=== PATIENT | female | born 1970 | race African-American/Black ===

== ENCOUNTER 2025-05-07 15:42 | Emergency (ER) | payer OTHER, SELFPAY ==
--- NOTE | ~2025-05-07 | CT_ITS ---
EXAMINATION: CT ABDOMEN AND PELVIS WITHOUT CONTRAST CLINICAL INFORMATION: Lower abdominal pain. COMPARISON: None available. TECHNIQUE: Multidetector volumetric imaging was performed from the superior aspect of the liver through the pubic symphysis. Sagittal and coronal reformatted images were obtained on the technologist's workstation. This CT examination was performed using dose optimization techniques as appropriate, variously including the following: *Automated exposure control *Adjustment of mA and/or kV according to patient size (this includes techniques or standardized protocols for targeted exams where dose is matched to indication/reason for exam; i.e. extremities or head) *Use of iterative reconstruction technique FINDINGS: LUNG BASES: The visualized lung bases are unremarkable. LIVER, GALLBLADDER, AND BILIARY TREE: The unenhanced liver is normal in size, shape, and attenuation. No focal hepatic lesion or biliary ductal dilatation is present. Gallbladder is surgically absent. PANCREAS: Unremarkable. SPLEEN: Unremarkable. ADRENAL GLANDS: Unremarkable. KIDNEYS AND URETERS: The kidneys are normal in size, shape, and attenuation. No hydronephrosis, hydroureter, or calculi seen. No perinephric stranding. BLADDER: Unremarkable. GASTROINTESTINAL TRACT: There is acute noncomplicated diverticulitis of the distal descending colon. A small amount of fluid in the left paracolic gutter. There is mild to moderate diverticulosis of the entire colon. There is no small bowel abnormality. No rectal abnormality. The appendix is normal. Stomach and duodenum appear normal. ABDOMINAL WALL: No significant hernia is appreciated. LYMPH NODES: Normal. VASCULAR: Unremarkable. PELVIC VISCERA: There is an IUD within the uterus. Uterus is retroverted and retroflexed. There is no adnexal abnormality. Ovaries appear normal. OSSEOUS STRUCTURES: There is no suspicious lytic or blastic bone lesion. CT/CT abdomen pelvis wo IV con IMPRESSION: Acute noncomplicated diverticulitis of the distal descending colon. Electronically signed by: Tj Padilla MD 05/07/2025 04:26 PM EDT
--- NOTE | 2025-05-07 15:59 | ED.GENADULT ---
HPI - General Adult General Chief complaint: Abdominal Pain Stated complaint: Blood in urine/ Sent from [facility] urgent care Time Seen by Provider: 05/07/25 16:08 Source: patient and RN notes reviewed Mode of arrival: ambulatory Limitations: no limitations History of Present Illness ED Provider: Melanie Robles PA-C HPI narrative: 54-year-old female with medical history of HTN presents to the ED due to 2 days of lower abdominal pain, nausea and increased urinary frequency. Patient states she woke up feeling fine on Saturday gradually through the day she noticed lower abdominal pain an increase of urinary frequency. Patient states she thought it was gas and was eating Tums without effect. Patient states she went to bed last night experiencing chills and slept with her heater on. Patient states she woke up this morning still experiencing lower abdominal pain and went to [facility] urgent care where they found a blood in the urine and encouraged her to seek care in the ED. Denies chest pain, shortness of breath, vomiting, diarrhea, black/tarry stool MD complaint: lower abd pain, increased urinary frequency Related Data Previous Rx's ?Medication ?Instructions ?Recorded amoxicillin 875 mg-potassium 1 tab PO BID #20 tabs 05/07/25 clavulanate 125 mg tablet ketorolac 10 mg tablet 10 mg PO Q8H PRN pain 3 days #9 05/07/25 tabs ondansetron HCl 4 mg tablet 4 mg PO Q8H PRN nausea and 05/07/25 vomiting #12 tabs Allergies Allergy/AdvReac Type Severity Reaction Status Date / Time No Known Allergies Allergy Verified 05/07/25 16:01 Review of Systems Review of Systems: CONST: Negative for fever, body aches and chills. HENT: Negative for neck pain/stiffness, headache, congestion, sore throat, swelling. EYES: Negative for discharge/pain or vision changes. RESP: Negative for cough/hemoptysis and shortness of breath. CV: Negative chest pain, difficulty breathing, palpitations. ABD: Negative vomiting. POS lower abdominal pain, nausea : Negative increase frequency, dysuria, blood in urine or stool. POS increased urinary frequency MUSC: Negative for muscle aches, edema. SKIN: Negative rash, lesions/sores. NEURO: Negative headache, dizziness, weakness. Yes all other systems are reviewed and are negative FOR[facility]LY [facility], [facility] Social History Social History Smoked in Last 30 Days: No Use of substances other than those prescribed or required for medical reasons: No Advance Directives: No Advance Directives Information Provided: No Physical Exam ED Vital Signs: Vital Signs - 24 hr 05/07/25 16:00 Temperature 98.0 F Pulse Rate 98 Respiratory Rate 18 Blood Pressure 126/82 Pulse Oximetry 99 Oxygen Delivery Method Room Air BMI result Body Mass Index 30.9 GENERAL APPEARANCE: ?AxOx4, generally well-appearing, no acute distress. HEENT: ?NC, AT. MMM. EOMI, clear conjunctiva, oropharynx clear. NECK: ?Supple without lymphadenopathy.? No stiffness or restricted ROM. HEART:? Normal rate and regular rhythm, normal S1/S2, no m/r/g LUNGS:? CTAB, moving air well. No crackles or wheezes are heard. ABDOMEN: soft, TTP over suprapubic region, no guarding, no rigidity, negative Child's sign, no rebound tenderness, no overlying skin changes BACK: No CVAT, no obvious deformity. EXTREMITIES: ?Without cyanosis, clubbing or edema. NEUROLOGICAL: ?Grossly nonfocal. Alert and oriented, moving all 4 extremities. Observed to ambulate with normal gait. Skin: ?Warm and dry without any rash. Course Course Course Narrative: RME, this is a rapid medical exam performed by Grayson Bueno please refer to primary provider for complete H&P- 54-year-old female presents for evaluation of lower abdominal pain, urinary frequency and chills. She went to urgent care today and was told that she had blood in the urine but no signs of a UTI and was referred to the ER. Symptoms started 2 nights ago. Plan for labs, urinalysis Medical Decision Making Medical Decision Making MDM Narrative: 54-year-old female with medical history of HTN presents to the ED due to 2 days of lower abdominal pain, nausea and increased urinary frequency. Patient states she woke up feeling fine on Saturday gradually through the day she noticed lower abdominal pain an increase of urinary frequency. Patient states she thought it was gas and was eating Tums without effect. Patient states she went to bed last night experiencing chills and slept with her heater on. Patient states she woke up this morning still experiencing lower abdominal pain and went to [facility] urgent care where they found a blood in the urine and encouraged her to seek care in the ED. VS on initial observation-BP 126/82, pulse rate of 98, respiratory rate of 18, afebrile with oral temp of 98?, O2 saturation 99% on room air. On physical exam patient with diffuse lower abdominal tenderness, no overlying skin changes, no CVAT Plan: Labs, UA, CT abdomen and pelvis Course 17:57- Labs revealed leukocytosis of 14.5, with a left shift, H and H stable, no evidence of electrolyte abnormality. UA with 2+ urine RBC cells, no evidence of infection, no CVA tenderness to percussion- less likely UTI/pyelonephritis Patient with IUD, beta HCG <2, hemodynamically stable- less likely ectopic CT abdomen and pelvis reveals acute uncomplicated diverticulitis of the distal descending colon- patient hemodynamically stable, afebrile with oral temp of 90?, will treat with 10 day course of Augmentin. I counseled patient on clear liquid diet for the next 72 hours, and advance diet as tolerated, to follow up with [facility] to ensure improvement in resolution of symptoms. Patient being treated for pain with 30 mg IM Toradol, Zofran. We will prescribe 3 days of Toradol and Zofran for pain and nausea management. Differential Diagnosis Differential Diagnoses: The differential diagnosis associated with the presentation includes Pyelonephritis Obstructing nephrolithiasis UTI Ectopic Admission/Observation Consideration of admission/observation: Escalation of care including admission/observation considered Lab Data MDM Lab Attestation statement: I reviewed the patient's lab results. 05/07/25 16:22 05/07/25 16:22 Labs: Lab Results 05/07/25 05/07/25 Range/Units 16:22 17:23 WBC 14.5 H (4.8-10.8) X10*3/uL RBC 4.42 (4.20-5.50) X10*6/uL Hgb 13.9 (12.0-16.0) g/dl Hct 40.6 (37.0-47.0) % MCV 91.9 (80.0-98.0) fL MCH 31.4 (27.0-33.0) pg MCHC 34.2 (31.0-35.0) g/dl RDW 13.2 (11.0-16.0) % Plt Count TNP MPV TNP Immature Gran % (Auto) 0.4 (0.0-0.4) % Neut % (Auto) 73.8 H (45-73) % Lymph % (Auto) 15.4 L (20-40) % Moore % (Auto) 9.9 (2-11) % Eos % (Auto) 0.2 (0-4) % Baso % (Auto) 0.3 (0-2) % Lymph # (Auto) 2.2 (1.2-4.9) X10*3/uL Moore # (Auto) 1.4 H (0.1-1.2) X10*3/uL Eos # (Auto) 0.0 (0.0-0.4) X10*3/uL Baso # (Auto) 0.0 (0.0-0.2) X10*3/uL Abs Immat Gran (auto) 0.06 H (0.00-0.03) X10*3/uL Absolute Neuts (auto) 10.7 H (2.0-8.3) x10*3/uL Absolute Nucleated RBC 0.000 (0.0-0.012) X10*3/uL Nucleated RBC % (auto) 0.0 (0.0-0.2) /100WBC Smear Tech's Comments VERIFIED Sodium 142 (135-145) mmol/L Potassium 4.1 (3.3-5.1) mmol/L Chloride 106 (96-108) mmol/L Carbon Dioxide 23 (22-29) mmol/L Anion Gap 17 (12-20) BUN 10 (9-16) mg/dL Creatinine 0.75 (0.5-1.4) mg/dL Estim Creat Clear Calc 77.2 Estimated GFR > 60 Random Glucose 98 (60-115) mg/dL Calcium 10.4 H (8.4-10.2) mg/dL Urine Color Yellow Urine Appearance Clear Urine pH 6.0 (5.0-9.0) Ur Specific [place] 1.010 (1.005-1.025) Urine Protein Negative (Neg-Trace) mg/dL Urine Glucose (UA) Negative (Negative) mg/dL Urine Ketones 15 (Negative) mg/dL Urine Blood Moderate (2+) H (Negative) Urine Nitrite Negative (Negative) Ur Leukocyte Esterase Negative (Negative) Urine RBC 0-2 (0-2) /HPF Urine WBC 0-5 (0-5) /HPF Ur Squamous Epith Cells 0-2 (0-2) /HPF Urine Bacteria None Seen (None Seen) Hyaline Casts 0-2 (0-2) /LPF Independent Interpretation I performed an independent interpretation of an: CT Scan Interpretation: CT abdomen and pelvis shows diverticulitis of the descending colon and I agree with the radiologist's interpretation Radiology Impression Discussion of test interpretation with radiology: I have reviewed the radiologist's reading. Radiologist Impression: CT abdomen and pelvis FINDINGS: LUNG BASES: The visualized lung bases are unremarkable. LIVER, GALLBLADDER, AND BILIARY TREE: The unenhanced liver is normal in size, shape, and attenuation. No focal hepatic lesion or biliary ductal dilatation is present. Gallbladder is surgically absent. PANCREAS: Unremarkable. SPLEEN: Unremarkable. ADRENAL GLANDS: Unremarkable. KIDNEYS AND URETERS: The kidneys are normal in size, shape, and attenuation. No hydronephrosis, hydroureter, or calculi seen. No perinephric stranding. BLADDER: Unremarkable. GASTROINTESTINAL TRACT: There is acute noncomplicated diverticulitis of the distal descending colon. A small amount of fluid in the left paracolic gutter. There is mild to moderate diverticulosis of the entire colon. There is no small bowel abnormality. No rectal abnormality. The appendix is normal. Stomach and duodenum appear normal. ABDOMINAL WALL: No significant hernia is appreciated. LYMPH NODES: Normal. VASCULAR: Unremarkable. PELVIC VISCERA: There is an IUD within the uterus. Uterus is retroverted and retroflexed. There is no adnexal abnormality. Ovaries appear normal. OSSEOUS STRUCTURES: There is no suspicious lytic or blastic bone lesion. CT/CT abdomen pelvis wo IV con IMPRESSION: Acute noncomplicated diverticulitis of the distal descending colon. Electronically signed by: Tj Padilla MD 05/07/2025 04:26 PM EDT Dictated By: Tj Padilla MD Signed By: <Electronically signed by Tj Padilla MD in OV> 05/07/25 1626 External Record Review External record reviewed: Inpatient record, Office record and Outpatient record Chronic Conditions Patient?s care impacted by: Hypertension Discharge Plan Discharge Clinical Impression: Diverticulitis Patient Disposition: Home, Self-Care Instructions: Diverticulitis (ED), Diverticulitis Diet (ED) Additional Instructions: You were evaluated in the ED today due to lower abdominal pain, and blood in your urinalysis at [facility] walk-in clinic. Your blood work revealed an increased white blood cell count of 14.5 this lab value can be elevated when your body is fighting an infection, there was no evidence of anemia or electrolyte abnormality. Your UA revealed some red blood cells without bacteria, this can be a normal finding, I encourage you to follow up with your primary care doctor for further evaluation however you do not need antibiotics for UTI at this time. Your CT scan of your abdomen and pelvis revealed stable diverticulosis of the entire colon, with diverticulitis which is an acute infection of the outpouchings of your intestine. Treatment includes antibiotics, bowel rest eating clear liquid foods such as Jell-O, broth for 72 hours and advancing as tolerated. You were medicated with 30 mg of IM Toradol which is a strong NSAID. You will be prescribed a 3 day course of Toradol which is the NSAID you got while in the emergency department, and Zofran for management of your nausea at home. For fevers you can take 500 mg of Tylenol every 6 hours. I have placed a referral to our GI doctors for you to follow up with, please call them Saturday morning to secure an appointment for further evaluation and management of your diverticulitis. Please return to the emergency department if you experience worsening abdominal pain, fevers over 100.4?, blood in the stool, chest pain, shortness of breath, or any new/worsening/concerning symptoms. Prescriptions: New amoxicillin-pot clavulanate 875-125 mg tablet 1 tab PO BID Qty: 20 0RF ondansetron HCl 4 mg tablet 4 mg PO Q8H PRN (Reason: nausea and vomiting) Qty: 12 0RF ketorolac 10 mg tablet 10 mg PO Q8H PRN (Reason: pain) 3 Days Qty: 9 0RF Rx Instructions: maximum total duration of 5 days from all oral, intranasal, or parenteral formulations PT given 30 mg IM toradol for pain management Print Language: Austrian
[2025-05-07 16:00] VITALS: BP 126/82; PULSE 98; RESP 18; TEMP 36.7; O2SAT 99; BMI 30.9
[2025-05-07 16:28] LABS: Imm Gran Abs Auto 0.06 X10*3/uL (0.00-0.03); Imm Gran Pct Auto 0.4 % (0.0-0.4); MANUAL DIFF FLAG SCAN; NRBC Abs Auto 0.000 X10*3/uL (0.0-0.012); NRBC Pct Auto 0.0 /100WBC (0.0-0.2); PLT CLUMP 1; SCAN SMEAR FLAG 1
[2025-05-07 16:29] LABS: Hematocrit 40.6 % (37.0-47.0); Hemoglobin 13.9 g/dl (12.0-16.0); Lymphocytes Absolute Auto 2.2 X10*3/uL (1.2-4.9); Mean Corpuscular HGB Conc 34.2 g/dl (31.0-35.0); Mean Corpuscular Hemoglobin 31.4 pg (27.0-33.0); Mean Corpuscular Volume 91.9 fL (80.0-98.0); Red Blood Count 4.42 X10*6/uL (4.20-5.50)
--- OUTSIDE RECORDS SUMMARY | 2025-05-07 16:36 | XMS_ITS | Clinical Summary ---
Author Organization [facility] Address [address] [place] [address] Phone Care Team Providers Care Director Of Product Development Name Role Phone Unavailable Primary Care Provider Unavailabl e Allergies No known active allergies Medications No known medications Active Problems No known active problems Family History Medical History Relation Name Comments Snoring Father Snoring Mother Relation Name Status Comments Father Mother Social History Tobacco Use Types Packs/Day Years Used Date Smoking Tobacco: Never Smokeless Tobacco: Never Tobacco Cessation:Counseling Given: No Alcohol Use Standard Drinks/Week Comments Not Currently 0 (1 standard drink = 0.6 oz pur e alcohol) PHQ-2 Answer Date Recorded Depression Risk 0 02/20/2023 Comments Unknown Sex and Gender Information Value Date Recorded Sex Assigned at Not on file Legal Sex Female 10:38 AM EDT Gender Identity Not on file Sexual Orientation Not on file Occupation Industry Job Start Date Job End Date employed Not on file Not on file Not on file Last Filed Vital Signs Vital Sign Reading Time Taken Comments Blood Pressure 131/69 02/20/2023 10:02 AM EDT Pulse 65 02/20/2023 10:02 AM EDT Temperature - - Respiratory Rate - - Oxygen Saturation 100% 02/20/2023 10:02 AM EDT Inhaled Oxygen Concentration - - Weight 71.7 kg (158 lb 1.6 oz) 02/20/2023 10:02 AM EDT Height 154.9 cm (5' 1 ) 02/20/2023 10:02 AM EDT Body Mass Index 29.87 02/20/2023 10:02 AM EDT Plan of Treatment Health Maintenance Due Date Last Done Comments CT Colonography 1968 Cologuard 1968 Colon Cancer Screening Annual FOBT 1968 Colon Cancer Screening Year Sigmoidoscopy 1968 Colonoscopy 1968 Combination Colorectal Cancer Screening 1968 FIT-DNA 1968 Mammogram 1968 Pap Smear 1989 Pneumococcal Immunization (1 of 1 - PCV) 2018 COVID-19 Vaccine ( season) 2024 12/28/2021, 07/28/2021, 12/17/2020, Additional history exists Influenza Vaccine (#1) 2025 0, 06/10/2017, 08/21/2010 Pneumococcal Immunization Aged Out No longer eligible based on patient's age to complete this topic RSV under 20 months Aged Out No longe r eligible based on patient's age to complete this topic Insurance COMMERCIAL - GENERIC
[2025-05-07 16:39] LABS: Anion Gap 17 (12-20); Blood Urea Nitrogen 10 mg/dL (9-16); Calcium 10.4 mg/dL (8.4-10.2); Carbon Dioxide 23 mmol/L (22-29); Chloride 106 mmol/L (96-108); Creatinine Clr Calc Pharmacy 77.2; Estimated Glomerular Filt Rate > 60; Potassium 4.1 mmol/L (3.3-5.1); Sodium 142 mmol/L (135-145)
[2025-05-07 16:48] LABS: White Blood Count 14.5 X10*3/uL (4.8-10.8)
[2025-05-07 17:36] LABS: Appearance Urine Clear; Glucose Urine UA Negative (Negative); PH 6.0 (5.0-9.0); Specific Gravity - Urine 1.010 (1.005-1.025); UMIC TRIGGER UACC YES
[2025-05-07 18:28] VITALS: BP 144/74; PULSE 92; RESP 18; TEMP 36.7; O2SAT 99
== END 2025-05-07 18:29 | disposition home or self-care (01) ==
PROVIDERS: Physician Assistant; Emergency Provider Emergency Medicine
DX: K57.92 Diverticulitis of intestine, part unspecified, without perforation or abscess without bleeding (principal); R35.0 Frequency of micturition; R11.0 Nausea; R31.9 Hematuria, unspecified; I10 Essential (primary) hypertension; Z97.5 Presence of (intrauterine) contraceptive device
CPT/HCPCS: 36415; 74176; 80048; 81001; 84702; 85025; 96372; 99284; J1885

== ENCOUNTER → 2025-05-07 16:02 | Outpatient (BNV) | payer OTHER, SELFPAY | PROVIDERS: Emergency Provider Emergency Medicine; Visit Provider Radiology Diagnostic Radiology | DX: K57.32 Diverticulitis of large intestine without perforation or abscess without bleeding (principal) | CPT/HCPCS: 74176 ==